=== PATIENT | male | born 1990 | race Asian ===

== ENCOUNTER 2019-09-14 20:34 | Emergency (ER) | payer OTHER ==
[~2019-09-14] VITALS: Ht 177.8 cm; Wt 69.4 kg
[2019-09-14 20:59] VITALS: BP 123/78; Ht 177.8 cm; Wt 69.4 kg
== END 2019-09-15 00:30 | disposition home or self-care (01) ==
LOC: ED 20:34
DX: S61.210A Laceration without foreign body of right index finger without damage to nail, initial encounter (principal); W45.8XXA Other foreign body or object entering through skin, initial encounter; Y93.89 Activity, other specified; Y92.89 Other specified places as the place of occurrence of the external cause; Y99.8 Other external cause status
CPT/HCPCS: 90715; J2001